=== PATIENT | female | born 1980 | race Asian ===

== ENCOUNTER → 2019-07-09 12:07 | Outpatient (CLI) | payer OTHER, SELFPAY ==
--- NOTE | 2019-07-09 12:11 | DI.MG.S_ITS ---
BILATERAL DIGITAL SCREENING MAMMOGRAM 3D/2D WITH CAD: 07/09/2019 CLINICAL: Baseline exam. Routine screening. No prior exams were available for comparison. The tissue of both breasts is heterogeneously dense. This may lower the sensitivity of mammography. Current study was also evaluated with a Computer Aided Detection (CAD) system. No significant masses, calcifications, or other findings are seen in either breast. IMPRESSION: NEGATIVE There is no mammographic evidence of malignancy. A 1 year screening mammogram is recommended. This exam was interpreted at Station ID: [id number]. NOTE: For mammograms, a report in lay terms will be sent to the patient. Approximately 15% of breast malignancies will not be visualized mammographically. In the management of a palpable breast mass, a negative mammogram must not discourage biopsy of a clinically suspicious lesion. Electronically Signed By: Tyshawn castillo/lissette:07/10/2019 08:14:55 letter sent: Normal Exam ACR BI-RADS Category 1: Negative 3341F
== END ==
PROVIDERS: Referring Provider Internal Medicine; Visit Provider Hospitalist
DX: Z12.31 Encounter for screening mammogram for malignant neoplasm of breast (principal)
CPT/HCPCS: 77063; 77067

== ENCOUNTER → 2020-02-05 08:18 | Outpatient (CLI) | payer OTHER, SELFPAY ==
[2020-02-05 09:28] LABS: Add Manual Diff / Slide Review NO; Basophils Absolute Auto 0 /uL (0-100); Basophils Percent Auto 0.6 % (0-2); Eosinophils Absolute Auto 200 /uL (0-450); Eosinophils Percent Auto 3.2 % (2-4); Hematocrit 42.7 % (36-46); Hemoglobin 14.7 g/dL (12.0-16.0); Lymphocytes Absolute Auto 2200 /uL (1100-4500); Lymphocytes Percent Auto 34.9 % (25-40); Mean Corpuscular HGB Conc 34.5 % (30-36); Mean Corpuscular Hemoglobin 30.3 PG (26-34); Mean Corpuscular Volume 87.9 fL (80-100); Monocytes Absolute Auto 500 /uL (0-900); Monocytes Percent Auto 8.2 % (3-14); Neutrophils Absolute Auto 3400 /uL (1500-7000); Neutrophils Percent Auto 53.1 % (50-75); Platelet Count 241 X10^3/uL (150-400); Red Blood Cell Count 4.85 X10^6/uL (4.0-5.2); Red Cell Distribution Width 12.7 % (11.6-14.8); White Blood Cell Count 6.4 X10^3/uL (4.5-11.0)
[2020-02-05 09:52] LABS: Alanine Aminotransferase 17 IU/L (<35); Albumin 4.3 g/dL (3.5-5.0); Albumin Globulin Ratio 1.3 (1.0-2.8); Alkaline Phosphatase 49 U/L (38-126); Aspartate Aminotransferase 22 IU/L (14-36); BUN Creatinine Ratio 13.6 (6-22); Bilirubin Total 0.5 mg/dL (0.2-1.3); Blood Urea Nitrogen 9 mg/dL (7-17); Calcium 9.2 mg/dL (8.4-10.2); Carbon Dioxide 26 mmol/L (22-32); Chloride 103 mmol/L (98-107); Cholesterol 250 mg/dL (140-199); Estimated Glomerular Filt Rate > 60.0 mL/min (>60); Globulin 3.3 g/dL (1.7-4.1); Glucose 99 mg/dL (70-100); HDL Cholesterol 46 mg/dL (40-60); HEMOLYSIS < 15 (0-50); LDL Cholesterol Calculated 130 mg/dL (<100); Potassium 3.6 mmol/L (3.4-5.1); Sodium 139 mmol/L (137-145); Total Protein 7.6 g/dL (6.3-8.2); Triglycerides 370 mg/dL (35-150)
[2020-02-05 10:18] LABS: TSH w/ Reflex to FT4 1.06 uIU/mL (0.47-4.68)
[2020-02-08 20:39] LABS: Shrimp IgE <0.10 kU/L (Class 0)
== END ==
PROVIDERS: PCP Registered Nurse Diabetes Educator; Referring Provider Registered Nurse Diabetes Educator; Visit Provider Registered Nurse Diabetes Educator
DX: Z00.00 Encounter for general adult medical examination without abnormal findings (principal); Z91.018 Allergy to other foods
CPT/HCPCS: 36415; 80053; 80061; 84443; 85025; 86003

== ENCOUNTER → 2020-03-05 16:20 | Outpatient (CLI) | payer OTHER, SELFPAY | PROVIDERS: PCP Registered Nurse Diabetes Educator; Visit Provider Registered Nurse Diabetes Educator | DX: N89.8 Other specified noninflammatory disorders of vagina (principal) | CPT/HCPCS: 87210; 87220 ==

== ENCOUNTER → 2020-11-06 12:22 | Outpatient (CLI) | payer OTHER, SELFPAY | PROVIDERS: PCP Registered Nurse Diabetes Educator; Visit Provider Registered Nurse | DX: N89.8 Other specified noninflammatory disorders of vagina (principal) | CPT/HCPCS: 87210 ==

== ENCOUNTER → 2020-11-09 13:41 | Outpatient (CLI) | payer OTHER, SELFPAY ==
--- NOTE | 2020-11-09 | DI.MG.S_ITS ---
BILATERAL DIGITAL SCREENING MAMMOGRAM 3D/2D WITH CAD: 11/09/2020 CLINICAL: Routine screening. Family history of breast cancer. Comparison is made to exam dated: 07/09/2019 [facility]. The tissue of both breasts is heterogeneously dense. This may lower the sensitivity of mammography. Current study was also evaluated with a Computer Aided Detection (CAD) system. No significant masses, calcifications, or other findings are seen in either breast. There has been no significant interval change. IMPRESSION: NEGATIVE There is no mammographic evidence of malignancy. A 1 year screening mammogram is recommended. This exam was interpreted at Station ID: [id number]. NOTE: For mammograms, a report in lay terms will be sent to the patient. Approximately 15% of breast malignancies will not be visualized mammographically. In the management of a palpable breast mass, a negative mammogram must not discourage biopsy of a clinically suspicious lesion. Electronically Signed By: Angelica stewart/lissette:11/09/2020 14:39:06 letter sent: Normal Exam ACR BI-RADS Category 1: Negative 3341F
== END ==
PROVIDERS: PCP Registered Nurse Diabetes Educator; Referring Provider Registered Nurse Diabetes Educator; Visit Provider Registered Nurse Diabetes Educator
DX: Z12.31 Encounter for screening mammogram for malignant neoplasm of breast (principal); Z80.3 Family history of malignant neoplasm of breast
CPT/HCPCS: 77063; 77067

== ENCOUNTER → 2020-12-24 10:39 | Outpatient (CLI) | payer OTHER, SELFPAY ==
--- NOTE | 2020-12-24 10:42 | DI.US.S_ITS ---
PROCEDURE: US PELVIC COMPLETE INDICATIONS: ABNORMAL VAGINAL SPOTTING TECHNIQUE: Real-time scanning was performed of the pelvic organs, with image documentation. Additional endovaginal scanning was necessary due to incomplete visualization of the adnexal and endometrial structures by transabdominal scanning. COMPARISON: None. FINDINGS: Uterus: Uterus is normal in size at 8.9 x 4.3 x 4.3 cm. The endometrium measures 18.5 mm in combined thickness. Ovaries: Thick wall, complex cysts with internal debris involves the right ovary measuring 2.8 x 2.0 x 2.2 cm. Doppler assessment demonstrates no internal vascularity. The left ovary is normal. Other: No pathologic free abdominal or pelvic fluid. IMPRESSION: Probable hemorrhagic right ovarian cyst and there is mild thickening of the endometrial complex. Recommend short-term follow-up pelvic ultrasound in 6-12 weeks to assess for interval resolution of the cyst and thinning of the endometrial complex. Dictated by: Omid WALLACE Interpreted: John Jonas MD on 12/24/2020 at 11:31 Approved by: John Jonas M.D. on 01/01/2021 at 9:44
== END ==
PROVIDERS: PCP Registered Nurse Diabetes Educator; Referring Provider Registered Nurse; Visit Provider Registered Nurse
DX: N93.9 Abnormal uterine and vaginal bleeding, unspecified (principal); R93.89 Abnormal findings on diagnostic imaging of other specified body structures; N83.201 Unspecified ovarian cyst, right side
CPT/HCPCS: 76830; 76856

== ENCOUNTER → 2021-04-08 10:01 | Outpatient (CLI) | payer OTHER, SELFPAY ==
[2021-04-08 10:35] LABS: COVID19 -Nasal RAPID Negative (Negative)
== END ==
PROVIDERS: PCP Registered Nurse Diabetes Educator; Visit Provider Obstetrics & Gynecology
DX: Z01.812 Encounter for preprocedural laboratory examination (principal); Z20.822 Contact with and (suspected) exposure to COVID-19
CPT/HCPCS: 87635

== ENCOUNTER 2021-04-09 09:07 | Day surgery (SDC) | payer OTHER, SELFPAY ==
[2021-04-02 09:16] VITALS: BMI 27.0
--- NOTE | 2021-04-08 12:27 | P.HPOB_ITS ---
History of Present Illness History of Present Illness Narrative: Peyton is a 41 yo , LMP 04/05/2021, who presents for evaluation of intermenstrual and postcoital spotting as well as thickened endometrium and a complex right ovarian cyst on pelvic ultrasound obtained 12/24/2020.? The patient states that she has had heavy and extremely painful periods throughout her life.? Over the last 2-3 years however the menstrual flow has decreased and her cramping has less but her menses remain regular.? Associated with her periods through the years however has been severe PMS symptoms which typically have lasted about 7 days prior to the onset of her period but now extend as long as 10-12 days.? The symptoms are primarily bloating, breast tenderness, and dysphoria.? She and her do not use any sort of control at this time and are open to further pregnancies but are not attempting .? The patient has a history of migraine with auras and her mother sustained a pulmonary embolus while on oral contraceptives therefore use of combination OCs would seem to be contraindicated.? 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 with her Paps often resulting in specimens that were uninterpretable due to the presence of blood in bleeding after her Pap was obtained.? Her most recent Pap smear was in October of 2020 and cytology was negative with GC and chlamydia also reported negative.? As result of her abnormal bleeding, a pelvic ultrasound was obtained and performed on 12/24/2020 which showed: FINDINGS:? Uterus:?? Uterus is normal in size at 8.9 x 4.3 x 4.3 cm.? The endometrium measures 18.5 mm in combined thickness.? Ovaries:? Thick wall, complex cysts with internal debris involves the right ovary measuring 2.8 x 2.0 x 2.2 cm.? Doppler assessment demonstrates no internal vascularity.?The left ovary is normal.? Other: ? No pathologic free abdominal or pelvic fluid.? IMPRESSION:? Probable hemorrhagic right ovarian cyst and there is mild thickening of the endometrial complex.? Recommend short-term follow-up pelvic ultrasound in 6-12 weeks to assess for interval resolution of the cyst and thin ann of the endometrial complex.? After discussion of all options regarding her abnormal uterine bleeding and thickened endometrial stripe on ultrasound the patient desires to proceed with hysteroscopy, possible biopsies, and dilation curettage of the uterus.? She is currently scheduled for performance of the procedure on 04/09/2021 and she presents today for her scheduled surgery. [facility] Medical History Adjustment disorder Basal cell carcinoma Bug bite Dyslipidemia Preventative health care Screening for malignant neoplasm of cervix Vaginal discharge Vaginal spotting Family History Father Chronic hepatitis C virus infection with cirrhosis Mother Hypothyroidism Cancer Social History household members: spouse and children Smoking Status: Never smoker Meds Home Medications and Allergies Home Medications Medication Instructions Recorded Confirmed Type bupropion HCl 150 mg 24 hr tablet, 150 mg PO QPM #30 tab 02/17/21 04/02/21 Rx extended release (Wellbutrin XL) trazodone 50 mg tablet See Rx Instructions .ROUTE 03/22/21 04/02/21 Rx .COMPLEX #90 tab Allergies Allergy/AdvReac Type Severity Reaction Status Date / Time acetaminophen [From Percocet] Allergy Mild Hives Verified 02/17/21 14:58 oxycodone [From Percocet] Allergy Mild Hives Verified 02/17/21 14:58 adhesive AdvReac Mild Rash Verified 02/17/21 14:58 Review of Systems Review of Systems Narrative: Problem-specific ROS positives included in HPI Exam Const General: cooperative and No acute distress Nutritional Appearance: average body habitus Orientation: alert and oriented x3 [facility] Head: normocephalic and atraumatic Ears: hearing grossly normal bilaterally Nose: external nose normal Face and sinus: normal facial exam Mouth: oral mucosae normal Teeth and gingiva: dentition normal Eyes General: appearance normal, both eyes and all related structures Eyelids: eyelids normal Conjunctivae: conjunctivae normal Sclera: sclerae normal EOM: EOM intact bilaterally Neck Neck: normal visual inspection, supple and No lymphadenopathy Thyroid: thyroid normal Resp Effort & Inspection: normal respiratory effort and able to speak in complete sentences Auscultation: clear to auscultation bilaterally Cardio Rate: regular rate Rhythm: regular rhythm Heart Sounds: S1 normal, S2 normal and no murmurs GI Inspection: normal to inspection Palpation: soft, no hepatosplenomegaly and No tender External Female Exam: normal external appearance Speculum Exam - Vagina: normal appearance of the vagina and normal vaginal discharge Bimanual Exam- Vagina & Uterus: normal bimanual exam, uterine size normal, uterine shape normal and non-tender Bimanual Exam- Adnexa, other: normal adnexae, no masses and non-tender Skin General: no rashes or lesions noted Extrem General: no calf tenderness Psych Appearance: grossly normal Mental Status: mental status grossly normal Speech and Movement: speech and movement normal Mood: congruent mood Affect: normal affect Attitude: cooperative Thought Process: normal Thought Content: normal Judgment: judgment good Assessment & Plan Assessment and plan (1) Abnormal uterine bleeding due to disorder of endometrium: Status: Acute (2) Increased endometrial stripe thickness: Status: Acute Assessment & Plan narrative: Patient counseled regarding alternatives, risks, benefits, and potential complications associated with hysteroscopy with possible biopsy, dilation and curettage of the uterus.? With full understanding of the above, a written consent was executed, signed and witnessed 04/08/2021. Time Spent With Patient Critical Care time: I spent a total of [] minutes of critical care time on this patient's care today; this time is exclusive of procedural time.
[2021-04-09] VITALS (7 sets, daily range): BP systolic 103–111; BP diastolic 67–75; PULSE 73–95; RESP 12–18; TEMP 36.2–37.1; O2SAT 97–100; BMI 26.4
--- NOTE | 2021-04-09 | PATH_ITS ---
[facility] Accession Number: [id number] . 01 Material submitted: . PART A: endocervix - ENDOCERVICAL CURETTINGS PART B: endometrium - ENDOMETRIAL CURETTINGS . 02 Diagnosis: A. Endocervical Curettings: Scant endocervical tissue fragments; negative for glandular dysplasia or malignancy. Please see comment. Portions of lower uterine segment; negative for glandular hyperplasia, cytologic atypia or malignancy. Avulsed, superficial portions of squamous epithelium; negative for squamous dysplasia or malignancy. . B. Endometrial Curettings: Portions of early secretory endometrium; negative for glandular hyperplasia, cytologic atypia, or malignancy. Some endometrial fragments demonstrate prominent vessels, suggestive of polyp, if clinical and imaging studies are concordant. MRV 04/13/2021 1537 Local . 02 Comment: Part A: Due to the scant nature of endocervical tissue in this biopsy, it may not be entirely call center support representative of this patient's endocervix; additional sampling could be considered, if clinically appropriate. . 02 Electronically signed: . Lana Suresh MD, Pathologist NPI- [id number] . 01 Gross description: . Part A: ENDOCERVICAL CURETTINGS: Received in formalin are minute fragments of mucoid and hemorrhagic material measuring 1.7 x 0.9 x 0.2 cm in aggregate. Submitted in toto in 1 cassette. Part B: ENDOMETRIAL CURETTINGS: Received in formalin are multiple fragment(s) of beckett, soft tissue measuring 2.7 x 1.7 x 0.8 cm in aggregate submitted entirely in 1 cassette(s) /QBJ 04/10/2021 0847 Local . 02 Pathologist provided ICD-10: N85.00 . 02 CPT . 929872, [id number] Performed at: 01 [facility] [address] [facility], [place], [place] [id number] MD Freddie Rojas MD Phone: [phone] Performed at: 02 [facility] [id number] [place], [place] [id number] MD Sandy Herrera MD Phone: [phone]
[2021-04-09] MEDS: LACTATED RINGERS 1,000 ML 42 ML IV (09:52)
--- NOTE | 2021-04-09 10:46 | SUR.OPER ---
Lithotomy on padded OR bed, head on pillow, arms secured on padded arm boards at <90 degrees abduction. Legs secured in padded yellow fins stirrups.
--- NOTE | 2021-04-09 11:27 | PM.GYNOP.1 ---
Operative Date/Time/Diagnoses Date of procedure: 04/09/21 Time of procedure: 10:55 Pre-op diagnosis: Abnormal uterine bleeding Thickened endometrial stripe Post-op diagnosis: same Procedure & Clinicians Procedure: Procedures Operation Date: 04/09/21 10:45 Actual Procedure Side Surgeon jinny Hysteroscopy w. Fractional Dilation and Curettage Jonny Brito MD Indications: Peyton is a 41 yo , LMP 04/05/2021, who presents for evaluation of intermenstrual and postcoital spotting as well as thickened endometrium and a complex right ovarian cyst on pelvic ultrasound obtained 12/24/2020.? The patient states that she has had heavy and extremely painful periods throughout her life.? Over the last 2-3 years however the menstrual flow has decreased and her cramping has less but her menses remain regular.? Associated with her periods through the years however has been severe PMS symptoms which typically have lasted about 7 days prior to the onset of her period but now extend as long as 10-12 days.? The symptoms are primarily bloating, breast tenderness, and dysphoria.? She and her do not use any sort of control at this time and are open to further pregnancies but are not attempting .? The patient has a history of migraine with auras and her mother sustained a pulmonary embolus while on oral contraceptives therefore use of combination OCs would seem to be contraindicated.? 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 with her Paps often resulting in specimens that were uninterpretable due to the presence of blood in bleeding after her Pap was obtained.? Her most recent Pap smear was in October of 2020 and cytology was negative with GC and chlamydia also reported negative.? As result of her abnormal bleeding, a pelvic ultrasound was obtained and performed on 12/24/2020 which showed: FINDINGS:? ?? Uterus:? Uterus is normal in size at 8.9 x 4.3 x 4.3 cm.? The endometrium measures 18.5 mm in combined thickness.? ? Ovaries:? Thick wall, complex cysts with internal debris involves the right ovary measuring 2.8 x 2.0 x 2.2 cm.? Doppler assessment demonstrates no internal vascularity.? The left ovary is normal. ? Other: ? No pathologic free abdominal or pelvic fluid. ? IMPRESSION:? Probable hemorrhagic right ovarian cyst and there is mild thickening of the endometrial complex.? Recommend short-term follow-up pelvic ultrasound in 6-12 weeks to assess for interval resolution of the cyst and thinning of the endometrial complex. After discussion of all options regarding her abnormal uterine bleeding and thickened endometrial stripe on ultrasound the patient desires to proceed with hysteroscopy, possible biopsies, and dilation curettage of the uterus.? She is currently scheduled for performance of the procedure on 04/09/2021 and she presents today for her scheduled surgery. Surgeon: Jonny Brito Anesthesia Type: General Operative Notes Findings: 2nd degree uterovaginal prolapse is noted. The cervix is parous and slightly enlarged. There seems to be significant nodular endocervical glandular hyperplasia and the overall appearance is erythematous with increased friability of the ectocervical surfaces. No focal lesions are noted however. The endocervical canal is unremarkable to hysteroscopic evaluation as is the endometrial cavity itself. There are no focal lesions within the endometrium and the endometrium itself appears generally unremarkable. Closure Type: not applicable Specimen(s): endometrial curettings and other (Endocervical curettings) Estimated blood loss (mL): 25 Blood products transfused: none Procedure in detail: With the patient under satisfactory general anesthetic in the modified dorsal lithotomy position, the perineum vagina and lower abdomen were prepped and draped in the usual manner for hysteroscopy and D&C. A pre-surgical safety time-out was then taken in accordance with [facility] OR protocols. A bivalve speculum was inserted in the vagina and cervix easily visualized. The anterior lip of the cervix was grasped with a single-tooth tenaculum and sequential dilation of the endocervical canal to 6 mm was accomplished easily. The hysteroscope was then inserted into the endometrial cavity using sterile saline as a distention medium and the entire endometrial cavity was inspected carefully. The findings were as noted above and were documented photographically. With no localized abnormality in the endometrial cavity, no hysteroscopic biopsies were obtained. Instead a fractional curettage was then accomplished in the usual manner with a Kevorkian curette used for the ECC and a small sharp curette used for the EMC. Separate pathologic specimens were obtained and submitted. At that point, the single-tooth tenaculum was removed from the anterior lip of the cervix and no significant bleeding was noted. The speculum was then removed from the vagina and the patient awakened having tolerated the procedure well. She was then transferred to the PACU for a period of observation and recovery. Estimated blood loss was 25 cc and no complications were experienced. Complications: none Post-operative Condition: stable Disposition: PACU Plan for aftercare: Routine postoperative care.
== END 2021-04-09 12:30 | disposition home or self-care (01) ==
PROVIDERS: PCP Registered Nurse Diabetes Educator; Referring Provider Obstetrics & Gynecology; Visit Provider Obstetrics & Gynecology
PROC: 0UDB8ZZ Extraction of Endometrium, Via Natural or Artificial Opening Endoscopic (ICD-10-PCS; CPT 58558; principal; 2021-04-09 10:45)
DX: N93.9 Abnormal uterine and vaginal bleeding, unspecified (principal); J45.909 Unspecified asthma, uncomplicated; G43.909 Migraine, unspecified, not intractable, without status migrainosus
CPT/HCPCS: 58558; 81025; J1100; J1885; J2250; J2405; J2704; J3010

== ENCOUNTER → 2021-05-20 13:56 | Outpatient (CLI) | payer OTHER, SELFPAY ==
[2021-05-20 14:30] LABS: Add Manual Diff / Slide Review NO; Basophils Absolute Auto 0 /uL (0-100); Basophils Percent Auto 0.7 % (0-2); Eosinophils Absolute Auto 300 /uL (0-450); Eosinophils Percent Auto 4.9 % (2-4); Hematocrit 39.3 % (36-46); Hemoglobin 13.6 g/dL (12.0-16.0); Lymphocytes Absolute Auto 1500 /uL (1100-4500); Lymphocytes Percent Auto 23.3 % (25-40); Mean Corpuscular HGB Conc 34.7 % (30-36); Mean Corpuscular Hemoglobin 30.5 PG (26-34); Mean Corpuscular Volume 88.1 fL (80-100); Monocytes Absolute Auto 500 /uL (0-900); Monocytes Percent Auto 8.6 % (3-14); Neutrophils Absolute Auto 4000 /uL (1500-7000); Neutrophils Percent Auto 62.5 % (50-75); Platelet Count 265 X10^3/uL (150-400); Red Blood Cell Count 4.46 X10^6/uL (4.0-5.2); Red Cell Distribution Width 12.7 % (11.6-14.8); White Blood Cell Count 6.4 X10^3/uL (4.5-11.0)
[2021-05-20 14:31] LABS: Alanine Aminotransferase 19 IU/L (<35); Albumin 4.3 g/dL (3.5-5.0); Albumin Globulin Ratio 1.4 (1.0-2.8); Alkaline Phosphatase 42 U/L (38-126); Aspartate Aminotransferase 22 IU/L (14-36); BUN Creatinine Ratio 18.6 (6-22); Bilirubin Total 0.5 mg/dL (0.2-1.3); Blood Urea Nitrogen 13 mg/dL (7-17); Calcium 9.4 mg/dL (8.4-10.2); Carbon Dioxide 29 mmol/L (22-32); Chloride 103 mmol/L (98-107); Estimated Glomerular Filt Rate > 60.0 mL/min (>60); Glucose 97 mg/dL (70-100); HEMOLYSIS < 15 (0-50); Potassium 4.2 mmol/L (3.4-5.1); Sodium 137 mmol/L (137-145); Total Protein 7.3 g/dL (6.3-8.2)
[2021-05-20 14:43] LABS: Hemoglobin A1C% w Est Avg Glu 5.1 % (4.0-6.0)
== END ==
PROVIDERS: PCP Registered Nurse Diabetes Educator; Referring Provider Registered Nurse Diabetes Educator; Visit Provider Registered Nurse Diabetes Educator
DX: Z01.818 Encounter for other preprocedural examination (principal)
CPT/HCPCS: 36415; 80053; 83036; 85025

== ENCOUNTER → 2021-11-10 12:47 | Outpatient (CLI) | payer OTHER, SELFPAY ==
--- NOTE | 2021-11-10 13:00 | DI.MG.S_ITS ---
BILATERAL DIGITAL SCREENING MAMMOGRAM 3D/2D WITH CAD: 11/10/2021 CLINICAL: Routine screening. Family history of breast cancer. Comparison is made to exams dated: 11/09/2020 mammogram and 07/09/2019 mammogram - [facility]. The tissue of both breasts is heterogeneously dense. This may lower the sensitivity of mammography. Current study was also evaluated with a Computer Aided Detection (CAD) system. No significant masses, calcifications, or other findings are seen in either breast. There has been no significant interval change. IMPRESSION: NEGATIVE There is no mammographic evidence of malignancy. A 1 year screening mammogram is recommended. This exam was interpreted at Station ID: [id number]. NOTE: For mammograms, a report in lay terms will be sent to the patient. Approximately 15% of breast malignancies will not be visualized mammographically. In the management of a palpable breast mass, a negative mammogram must not discourage biopsy of a clinically suspicious lesion. Electronically Signed By: John manzo/lissette:11/10/2021 14:26:50 letter sent: Normal Exam ACR BI-RADS Category 1: Negative 3341F
== END ==
PROVIDERS: PCP Registered Nurse Diabetes Educator; Referring Provider Registered Nurse Diabetes Educator; Visit Provider Registered Nurse Diabetes Educator
DX: Z12.31 Encounter for screening mammogram for malignant neoplasm of breast (principal); Z80.3 Family history of malignant neoplasm of breast
CPT/HCPCS: 77063; 77067